=== PATIENT | female | born 1945 | race Caucasian/White ===

== ENCOUNTER → 2020-05-22 09:33 | Outpatient (CLI) | payer MEDICARE, BC | END | disposition home or self-care (01) | LOC: D.CT 09:30 | PROVIDERS: ATTEND Psychiatry & Neurology Neurology | DX: S09.90XA Unspecified injury of head, initial encounter (principal) ==

== ENCOUNTER → 2020-07-21 16:49 | Outpatient (CLI) | payer MEDICARE, BC ==
[2020-07-21 18:41] LABS: BILIRUBIN NEGATIVE (NEGATIVE); KETONE NEGATIVE (NEGATIVE); NITRITE NEGATIVE (NEGATIVE); UROBILINOGEN NORMAL mg/dL (< 2)
== END | disposition home or self-care (01) ==
LOC: D.LABREF 16:49
PROVIDERS: ATTEND Family Medicine
DX: R29.6 Repeated falls (principal)